=== PATIENT | female | born 1980 | race Caucasian/White ===

== ENCOUNTER 2017-05-09 04:47 | Emergency (ER) | payer OTHER ==
[2017-05-09] MEDS ORDERED: LIDOCAINE 2% VISCOUS 15 ML UDCUP PO ONE (05:00)
[2017-05-09] MEDS ORDERED: MAG HYDROX/AL HYDROX/SIMETH 30 ML UDCUP PO ONE (05:00)
--- NOTE | 2017-05-09 05:00 | EDPHY ---
H & P Time Seen by Provider: 05/09/17 04:57 HPI/ROS: Chief Complaint: Abdominal pain HPI: 36-year-old developed left upper abdominal pain 2 nights ago. Does been associated with some nausea but no vomiting. She has had several episodes of diarrhea. Yesterday morning she took some Advil with no relief. Pain waxes and wanes but never goes completely away. At worst is 6/10. Right now is about a 3/10. This morning she was on the toilet and had some diarrhea. She has also had some nausea. At that time she had cramping in her abdomen and she noticed that she was getting cramping in her hands and numbness around her mouth. No fevers or chills. Pain is not move around. She has a history of endometriosis. She is currently on long-acting control and has not had a menstrual cycle for 6 months. This pain does not feel like her endometriosis pain which is usually lower pelvis. No urinary urgency or frequency. There are no aggravating or alleviating factors. ROS: 10 point Review of Systems is negative except as noted in the HPI. PMH: Endometriosis Social History: No smoking, no alcohol, no recreational drug use Family History: non-contributory Physical Exam: Gen: Awake, Alert, No Distress HEENT: Nose: no rhinorrhea Eyes: PERRLA, EOMI Mouth: Moist mucosa Neck: Supple, no JVD Chest: nontender, lungs clear to auscultation Heart: S1, S2 normal, no murmur Abd: Soft, mild epigastric tenderness, no right upper quadrant tenderness, no lower abdominal tenderness. No pelvis tenderness, no guarding Back: no CVA tenderness, no midline tenderness Ext: no edema, non-tender Skin: no rash Neuro: CN II-XII intact, Sensation grossly intact, Strength 5/5 in bilateral upper and lower extremities - Personal History Tetanus Vaccine Date: UNSURE BUT WITHIN 10 YEARS Constitutional: Initial Vital Signs Temperature (C) 36.6 C 05/09/17 04:50 Heart Rate 91 05/09/17 04:50 Respiratory Rate 16 05/09/17 04:50 Blood Pressure 115/80 05/09/17 04:50 O2 Sat (%) 100 05/09/17 04:50 O2 Delivery Mode Room Air Allergies/Adverse Reactions: No Known Allergies Allergy (Verified 05/09/17 05:08) Home Medications: Medication Instructions Recorded Control 05/09/17 Levothyroxine 05/09/17 Medical Decision Making ED Course/Re-evaluation: Patient has had some mild is relief with a GI cocktail. She is occasionally still having some spasms which last about 5 min. Will give her some morphine and reassess. I am still awaiting her laboratory results. Laboratory evaluations unremarkable. Patient is improved after morphine and GI cocktail. She has a soft benign abdomen. Symptoms consistent with possible peptic ulcer disease or gastritis. Will start her on an H2 rito over-the- counter. Follow up with her primary care physician and referral for Gastroenterology. - Data Points Laboratory Results: Laboratory Results 05/09/17 05:10 05/09/17 05:10 05/09/17 05/09/17 05/09/17 06:12 05:10 05:10 WBC RBC Hgb Hct MCV MCH MCHC RDW Plt Count MPV Neut % (Auto) Lymph % (Auto) [place] % (Auto) Eos % (Auto) Baso % (Auto) Nucleat RBC Rel Count Absolute Neuts (auto) Absolute Lymphs (auto) Absolute Monos (auto) Absolute Eos (auto) Absolute Basos (auto) Absolute Nucleated RBC Immature Gran % Immature Gran # Sodium 140 mEq/L mEq/L (135-145) Potassium 3.7 mEq/L mEq/L (3.5-5.2) Chloride 105 mEq/L mEq/L (97-110) Carbon Dioxide 23 mEq/l mEq/l (22-31) Anion Gap 12 mEq/L mEq/L (8-16) BUN 11 mg/dL mg/dL (7-23) Creatinine 0.7 mg/dL mg/dL (0.6-1.0) Estimated GFR > 60 Glucose 103 mg/dL H mg/dL (70-100) Calcium 8.1 mg/dL L mg/dL (8.5-10.4) Total Bilirubin 0.6 mg/dL mg/dL (0.1-1.4) AST 24 IU/L IU/L (14-46) ALT 41 IU/L IU/L (9-52) Alkaline Phosphatase 43 IU/L IU/L (38-126) Total Protein 6.8 g/dL g/dL (6.3-8.2) Albumin 3.8 g/dL g/dL (3.5-5.0) Lipase 130 IU/L IU/L (23-300) Beta HCG, Qual NEGATIVE Urine Color Pending Urine Appearance Pending Urine pH Pending Ur Specific [place] Pending Urine Protein Pending Urine Ketones Pending Urine Blood Pending Urine Nitrate Pending Urine Bilirubin Pending Urine Urobilinogen Pending Ur Leukocyte Esterase Pending Urine Glucose Pending 05/09/17 05:10 WBC 6.11 10^3/uL 10^3/uL (3.80-9.50) RBC 4.84 10^6/uL 10^6/uL (4.18-5.33) Hgb 14.7 g/dL g/dL (12.6-16.3) Hct 40.6 % % (38.0-47.0) MCV 83.9 fL fL (81.5-99.8) MCH 30.4 pg pg (27.9-34.1) MCHC 36.2 g/dL g/dL (32.4-36.7) RDW 12.0 % % (11.5-15.2) Plt Count 211 10^3/uL 10^3/uL (150-400) MPV 9.5 fL fL (8.7-11.7) Neut % (Auto) 83.5 % H % (39.3-74.2) Lymph % (Auto) 8.8 % L % (15.0-45.0) [place] % (Auto) 6.7 % % (4.5-13.0) Eos % (Auto) 0.2 % L % (0.6-7.6) Baso % (Auto) 0.3 % % (0.3-1.7) Nucleat RBC Rel Count 0.0 % % (0.0-0.2) Absolute Neuts (auto) 5.10 10^3/uL 10^3/uL (1.70-6.50) Absolute Lymphs (auto) 0.54 10^3/uL L 10^3/uL (1.00-3.00) Absolute Monos (auto) 0.41 10^3/uL 10^3/uL (0.30-0.80) Absolute Eos (auto) 0.01 10^3/uL L 10^3/uL (0.03-0.40) Absolute Basos (auto) 0.02 10^3/uL 10^3/uL (0.02-0.10) Absolute Nucleated RBC 0.00 10^3/uL 10^3/uL (0-0.01) Immature Gran % 0.5 % % (0.0-1.1) Immature Gran # 0.03 10^3/uL 10^3/uL (0.00-0.10) Sodium Potassium Chloride Carbon Dioxide Anion Gap BUN Creatinine Estimated GFR Glucose Calcium Total Bilirubin AST ALT Alkaline Phosphatase Total Protein Albumin Lipase Beta HCG, Qual Urine Color Urine Appearance Urine pH Ur Specific [place] Urine Protein Urine Ketones Urine Blood Urine Nitrate Urine Bilirubin Urine Urobilinogen Ur Leukocyte Esterase Urine Glucose Medications Given: Discontinued Medications Al Hydroxide/Mg Hydroxide (Maalox Susp) 30 ml PO ONCE ONE Stop: 05/09/17 05:01 Last Admin: 05/09/17 05:33 Dose: 30 ml Sodium Chloride (Ns) 1,000 mls @ 0 mls/hr IV ONCE ONE PRN Reason: Wide Open Stop: 05/09/17 05:41 Last Admin: 05/09/17 05:41 Dose: 1,000 mls Lidocaine (Lidocaine 2% Viscous) 15 ml PO ONCE ONE Stop: 05/09/17 05:01 Last Admin: 05/09/17 05:33 Dose: 15 ml Morphine Sulfate (Morphine) 4 mg IVP ONCE ONE Stop: 05/09/17 05:58 Last Admin: 05/09/17 06:04 Dose: 4 mg Ondansetron HCl (Zofran) 4 mg IVP EDNOW ONE Stop: 05/09/17 06:06 Last Admin: 05/09/17 06:11 Dose: 4 mg Pantoprazole Sodium (Protonix) 40 mg IVP EDNOW ONE Stop: 05/09/17 05:02 Last Admin: 05/09/17 05:33 Dose: 40 mg Departure - Departure Disposition: Home, Routine, Self-Care Clinical Impression: Gastritis Condition: Good Instructions: Gastritis (ED), Diet for Stomach Ulcers and Gastritis (ED) Additional Instructions: May start taking famotidine available [id number] for your upper abdominal discomfort. Follow up with [facility] in about a week for further evaluation. Referrals: Patient,NotPresent [Unknown] - As per Instructions Noel Parra MD [Medical Doctor] - As per Instructions
[2017-05-09] MEDS ORDERED: PANTOPRAZOLE SODIUM 40 MG VIAL IVP ONE (05:01)
[2017-05-09 05:08] VITALS: RESP 16
[2017-05-09] MEDS ORDERED: NS 1,000 ML IV ONE (05:40)
[2017-05-09 05:49] LABS: PLATELET COUNT 211 10^3/uL (150-400)
[2017-05-09] MEDS ORDERED: ONDANSETRON 4 MG/2 ML VIAL IVP ONE (06:05)
[2017-05-09] MEDS ORDERED: ONDANSETRON 4 MG/2 ML VIAL ONE (06:07)
[2017-05-09] MEDS ORDERED: KETOROLAC 15 MG/1 ML SDV IVP ONE (06:50)
[2017-05-09 07:30] VITALS: BP 107/70; PULSE 78; TEMP 98.4; O2SAT 95
== END 2017-05-09 07:28 | disposition home or self-care (01) ==
LOC: EDUNIT#
DX: K29.70 Gastritis, unspecified, without bleeding (principal)
CPT/HCPCS: 96374; J2270; J2405

== ENCOUNTER → 2017-06-05 | Outpatient (CLI) | payer OTHER | LOC: FIMAGING 13:41 | PROVIDERS: ATTEND Family Medicine | DX: N83.202 Unspecified ovarian cyst, left side (principal); Z87.42 Personal history of other diseases of the female genital tract ==

== ENCOUNTER → 2017-06-15 | Outpatient (CLI) | payer OTHER | LOC: FIMAGING 11:34 → EDSTATUS 11:35 | PROVIDERS: ATTEND Physician Assistant | DX: Z11.1 Encounter for screening for respiratory tuberculosis (principal); R76.11 Nonspecific reaction to tuberculin skin test without active tuberculosis ==

== ENCOUNTER → 2018-01-01 | Outpatient (CLI) | payer OTHER | LOC: FIMAGING 12:52 | PROVIDERS: ATTEND Family Medicine | DX: R07.9 Chest pain, unspecified (principal); J06.9 Acute upper respiratory infection, unspecified ==